=== PATIENT | male | born 2005 | race Two or more races ===

== ENCOUNTER 2024-01-12 11:00 | Emergency (ER) | payer MEDICAID, SELFPAY ==
[2024-01-12 11:09] VITALS: BP 140/75; PULSE 122; RESP 19; TEMP 36.9; O2SAT 99; BMI 27.5
--- NOTE | 2024-01-12 11:29 | PD.EDADULT ---
ED General RME/HPI General Chief complaint: Dental/Oral/Throat Stated complaint: BLOOD PRESSURE MARCELLO AT DENTIST'S OFFICE. Time Seen by Provider: 01/12/24 11:07 Arrival date/time: 01/12/24 11:00 CC: High blood pressure HPI patient was at the dentist he was noted to have high blood pressure and was referred here to the emergency room. The patient is somewhat anxious stating that the numbed the wrong area . The patient denies fever chills chest pain syncope shortness of breath or difficulty breathing. Related Data Previous Rx's ?Medication ?Instructions ?Recorded pantoprazole 40 mg tablet,delayed 40 mg PO QDAY #30 tabs 06/23/21 release (Protonix) Allergies Allergy/AdvReac Type Severity Reaction Status Date / Time NKA* Allergy Uncoded 01/13/11 12:02 Review of Systems Review of Systems Narrative Review of Systems: GEN: No fever, no chills, no weight loss EYES: No discharge, no visual changes, no pain HEENT: No ear pain, no congestion, no sore throat PULM: No shortness of breath, no cough, no congestion CV: No chest pain, no dyspnea on exertion, no palpitations GI: No nausea, no vomiting, no diarrhea, no pain, no constipation : No frequency, no urgency, no dysuria MUSC/SKEL: No joint pain, no back pain SKIN: No rash PSYCH: No hallucinations, no depression HEME/LYMPH: No easy bleeding or bruising tendencies NEURO: No weakness, no headache Past Medical History Social History SMOKING STATUS: Never smoker ED Exam Narrative Physical exam: [General: Not in any acute distress Head normocephalic HEENT: Within acceptable limits Neck is supple nontender Chest equal chest rise nontender to palpation Respiratory: Clear to auscultation no wheezes crackles or rubs CV: Rate rhythm is regular no murmurs rubs or clicks Abdomen is soft nontender no masses positive bowel sounds all 4 quadrants Back: No CVA tenderness no spinous process tenderness from cervical spine thoracic and lumbar spine Skin: Intact no petechiae rash induration ulceration or crepitus Extremities: Moving all extremity against resistance cap refill less than 2 seconds neurosensory intact Neuro: Awake alert oriented x3 Glascow coma 15 no focal deficits] Course Quality Measures none Vital Signs Vital signs: Vital Signs Temperature 98.4 F 01/12/24 11:09 Pulse Rate 122 H 01/12/24 11:09 Respiratory Rate 19 01/12/24 11:09 Blood Pressure 140/75 H 01/12/24 11:09 Pulse Oximetry (%) 99 01/12/24 11:09 Oxygen Delivery Method Room Air 01/12/24 11:[address] [facility] Patient data External records reviewed:: [facility] previous records Clinical information provided by:: patient Social determinants that could affect healthcare access:: none Patient has the following chronic illnesses:: Anxiety How is presenting disease/condition affected by chronic disease/condition?: uneffected by Evaluation data The following diagnostics were reviewed and interpreted by me:: other (specify) (None) Lab and/or radiology exams considered but not ordered:: None Interpretation Summary: Anxiety driven stress-induced hypertension that is since resolved Medications Medications considered but not ordered:: None Medication administrations:: None Consultations Consultation(s) initiated? (list below): No Diagnosis Differential Diagnosis ED Complaint MDM: Hypertension anxiety somatization Most likely diagnosis given after review of the tests above:: Anxiety Admission Indicated Admission indicated?: not indicated Explain why admission is indicated or not indicated:: Stable for outpatient follow-up Admission Request Was there a request for admission?: No Disposition Plan Disposition Plan: Discharge Discharge Attestation Discharge Attestation: The patient and all family members were given an opportunity to ask questions and understood the discharge instructions. Discharge instructions specifically effects, indications for sooner follow up or return to the emergency department, and the expected course of current diagnosis. Patient condition: Stable Medical Decision Making Differential Diagnosis Differential Diagnosis: Hypertension anxiety somatization Discharge Plan Plan Patient Disposition: HOME (Self Care) Patient condition on transfer: Stable Prescriptions/Referrals Prescriptions/Med Rec: No Action pantoprazole [Protonix] 40 mg tablet,delayed release (DR/EC) 40 mg PO QDAY Qty: 30 0RF Problem List Clinical Impression: Transient hypertension, Anxiety Patient/Caregiver Discharge Instructions Education Materials: ED Anxiety Reaction Additional Instructions: Follow-up with your primary care provider, remember to inform providers that you have anxiety when you go ahead of time this will make your examination and/or procedure easier. Print Language: Belgian Stand Alone Forms: Katherine Award Info., Patient Portal Info Letter, Work/School Release JHONNY/MOISES Supervising Physician ОЛЕГ Supervising Physician: Efrain Esparza ENP
== END 2024-01-12 11:38 | disposition home or self-care (01) ==
LOC: SERX 11:41
PROVIDERS: Emergency Provider Emergency Medicine
DX: I10 Essential (primary) hypertension (principal); F41.9 Anxiety disorder, unspecified
CPT/HCPCS: 99281